=== PATIENT | female | born 1970 | race Caucasian/White ===

== ENCOUNTER → 2019-09-20 13:59 | Outpatient (BNVA) | payer BC, SELFPAY | PROVIDERS: Family Provider Family Medicine; PCP Family Medicine; Visit Provider Internal Medicine Rheumatology | DX: M05.9 Rheumatoid arthritis with rheumatoid factor, unspecified (principal); Z79.899 Other long term (current) drug therapy; Z11.59 Encounter for screening for other viral diseases; Z11.1 Encounter for screening for respiratory tuberculosis; Z72.89 Other problems related to lifestyle; M19.90 Unspecified osteoarthritis, unspecified site | CPT/HCPCS: 36415; 80076; 82565; 85025; 86140; 86480; 86704; 86803; 87340 ==

== ENCOUNTER 2019-09-21 08:50 | Outpatient (CLI) | payer SELFPAY ==
--- NOTE | 2019-09-21 09:08 | XR_ITS ---
WS: [id number] LEFT HAND: 3 VIEW(S) TECHNIQUE: PA, oblique and lateral. HISTORY: inflammatory arthritis COMPARISON: None available. No acute fracture or dislocation. No soft tissue or bone abnormality. XR/XR hand LT min 3V* [id number] IMPRESSION: Normal LEFT hand.
--- NOTE | 2019-09-21 09:08 | XR_ITS ---
WS: [id number] RIGHT FOOT: 3 VIEW(S) TECHNIQUE: PA, oblique and lateral. HISTORY: inflammatory arthritis COMPARISON: None available. No acute fracture or dislocation. Mild hallux valgus. Small erosion in the first metatarsal head and fifth metatarsal head. There is also mild osteopenia. Small calcaneal spur. XR/XR foot RT min 3V* [id number] IMPRESSION: 1. Mild osteopenia. 2. Small erosions involving the first and fifth metatarsal heads.
--- NOTE | 2019-09-21 09:08 | XR_ITS ---
WS: [id number] LEFT FOOT: 3 VIEW(S) TECHNIQUE: PA, oblique and lateral. HISTORY: inflammatory arthritis COMPARISON: None available. No acute fracture or dislocation. Normal tarsal/metatarsal alignment. No soft tissue abnormality or bone destruction. Mild osteopenia. Small erosion involving the fifth metatarsal head. XR/XR foot LT min 3V* [id number] IMPRESSION: 1. Fifth metatarsal head erosion and osteopenia. Findings can be seen with rhe umatoid arthritis. 2. No fracture or subluxation.
--- NOTE | 2019-09-21 09:08 | XR_ITS ---
WS: [id number] CHEST 2 VIEWS HISTORY: inflammatory arthritis COMPARISON: 07/03/2017 Lungs: Lungs are well-aerated. On the lateral projection only is a slight spiculation posterior to th e sternum which needs further evaluation. May be an area of scar. No prior studies to confirm long-te rm stability. Cardiac size: Normal. Mediastinum/Aorta: Normal mediastinum. Bones: Normal. XR/XR chest 2V* [id number] IMPRESSION: 1. Seen on the lateral projection within the retrosternal region is a spiculat ed nodule measuring 12 mm. Recommend follow-up chest CT with IV contrast. Neopl asm needs to be excluded. May be a benign scar or atelectasis. 2. No bullous disease.
== END 2019-09-21 08:51 | disposition home or self-care (01) ==
LOC: RADWPI 08:54
PROVIDERS: Family Provider Family Medicine; PCP Family Medicine; Visit Provider Internal Medicine Rheumatology
DX: M13.88 Other specified arthritis, other site (principal); M85.872 Other specified disorders of bone density and structure, left ankle and foot; M85.871 Other specified disorders of bone density and structure, right ankle and foot
CPT/HCPCS: 71046; 73130; 73630

== ENCOUNTER → 2019-10-23 12:42 | Outpatient (BNVA) | payer SELFPAY | PROVIDERS: Family Provider Family Medicine; PCP Family Medicine; Visit Provider Internal Medicine Rheumatology | DX: Z79.899 Other long term (current) drug therapy (principal); M05.9 Rheumatoid arthritis with rheumatoid factor, unspecified; M19.90 Unspecified osteoarthritis, unspecified site | CPT/HCPCS: 80076; 82565; 85025; 85651; 86140 ==

== ENCOUNTER 2019-11-13 08:50 | Outpatient (CLI) | payer SELFPAY ==
[2019-11-13] MEDS: iohexol 300 mg/mL 100 mL Btl IV (09:11)
--- NOTE | 2019-11-13 10:00 | CT_ITS ---
WS: [id number] CT CHEST TECHNIQUE: Contrast enhanced CT of the chest with coronal and sagittal reformatted images. CLINICAL INFORMATION: lung nodule COMPARISON: Radiograph September 21, 2019 DLP: 399.[address] scans at [facility] use at least one of these dose optimization techniques: automat ed exposure control; mA and/or kV adjustment per patient size (includes targeted exams where dose is matched to clinical indication); or iterative reconstruction. FINDINGS: Mild chronic emphysematous changes. No acute-appearing pulmonary infiltrates. Previously described sp iculated nodule in the radiograph retrosternal region corresponds to a small fibrotic nodular density measuring 9 mm along the anterior right upper lobe and adjacent to the mediastinum. Small amount of adjacent tree in bud infiltrate. Additional micronodular tree-in-bud infiltrates involving the right upper lobe. Hazy groundglass noncalcified nodules in the right upper lobe the largest measuring 4.4 and 2.8 mm. A dditional fibrosis and tree-in-bud nodularity in the right lung apex. No mediastinal or hilar lymphadenopathy. Normal thyroid gland. No axillary lymphadenopathy. Splenic g ranulomas. Adrenal glands are normal. Partially visualized cortical atrophy left kidney with a few pa rtially visualized and presumed renal cysts. Fatty infiltration liver. Dense cholelithiasis. CT/CT chest w con* [id number] IMPRESSION: 1. Fibrotic appearing nodular density in the right upper lobe anteriorly adjac ent to the mediastinum measuring 9 mm corresponds to the radiographic findings. Recommend 6 month follow-up. 2. Additional hazy groundglass nodules in the right upper lobe measuring 4.4 a nd 2.8 mm. Recommend 6 month follow-up. 3. A few micronodular tree-in-bud infiltrates in the right upper lobe describe d above can be seen with infectious or inflammatory bronchiolitis. 4. Dense Cholelithiasis. This can be further evaluated with ultrasound. 5. Partially visualized low-attenuation lesions left kidney likely renal cysts but incompletely evaluated. This can be further evaluated ultrasound. 6. Diffuse fatty infiltration liver.
== END 2019-11-13 08:51 | disposition home or self-care (01) ==
LOC: RAD 08:54
PROVIDERS: Family Provider Family Medicine; PCP Family Medicine; Visit Provider Internal Medicine Rheumatology
DX: R91.1 Solitary pulmonary nodule (principal); R91.8 Other nonspecific abnormal finding of lung field; K80.80 Other cholelithiasis without obstruction; N28.9 Disorder of kidney and ureter, unspecified; K76.0 Fatty (change of) liver, not elsewhere classified
CPT/HCPCS: 71260

== ENCOUNTER → 2019-12-13 14:53 | Outpatient (BNVA) | payer SELFPAY | PROVIDERS: Family Provider Family Medicine; PCP Family Medicine; Visit Provider Internal Medicine Rheumatology | DX: Z79.899 Other long term (current) drug therapy (principal) | CPT/HCPCS: 36415; 80076; 82565; 85025; 85651; 86140 ==

== ENCOUNTER → 2019-12-28 09:36 | Outpatient (BNVA) | payer SELFPAY | PROVIDERS: Family Provider Family Medicine; PCP Family Medicine; Visit Provider Internal Medicine Rheumatology | DX: M05.79 Rheumatoid arthritis with rheumatoid factor of multiple sites without organ or systems involvement (principal); Z79.899 Other long term (current) drug therapy; K13.0 Diseases of lips; F17.210 Nicotine dependence, cigarettes, uncomplicated; Z79.52 Long term (current) use of systemic steroids | CPT/HCPCS: 99214 ==

== ENCOUNTER → 2020-05-15 15:19 | Outpatient (BNVA) | payer SELFPAY | PROVIDERS: Family Provider Family Medicine; PCP Family Medicine; Visit Provider Internal Medicine Rheumatology | DX: Z79.899 Other long term (current) drug therapy (principal); M05.79 Rheumatoid arthritis with rheumatoid factor of multiple sites without organ or systems involvement | CPT/HCPCS: 36415; 80076; 82565; 85025; 85651; 86140 ==

== ENCOUNTER → 2020-06-21 08:42 | Outpatient (BNVA) | payer SELFPAY | PROVIDERS: Family Provider Family Medicine; PCP Family Medicine; Visit Provider Internal Medicine Rheumatology | DX: M05.79 Rheumatoid arthritis with rheumatoid factor of multiple sites without organ or systems involvement (principal); Z79.899 Other long term (current) drug therapy; Z11.59 Encounter for screening for other viral diseases | CPT/HCPCS: 80076; 81003; 82565; 82570; 84156; 85025; 85651; 86140 ==

== ENCOUNTER → 2020-09-19 10:29 | Outpatient (BNVA) | payer SELFPAY | PROVIDERS: Family Provider Family Medicine; PCP Family Medicine; Visit Provider Internal Medicine Rheumatology | DX: M05.79 Rheumatoid arthritis with rheumatoid factor of multiple sites without organ or systems involvement (principal); M19.90 Unspecified osteoarthritis, unspecified site; Z79.899 Other long term (current) drug therapy | CPT/HCPCS: 36415; 80076; 82565; 85025; 86140 ==

== ENCOUNTER → 2020-09-26 14:56 | Outpatient (BNVA) | payer SELFPAY | PROVIDERS: Family Provider Family Medicine; PCP Family Medicine; Visit Provider Internal Medicine Rheumatology | DX: M05.79 Rheumatoid arthritis with rheumatoid factor of multiple sites without organ or systems involvement (principal); Z79.899 Other long term (current) drug therapy; K13.0 Diseases of lips; F17.210 Nicotine dependence, cigarettes, uncomplicated | CPT/HCPCS: 99214 ==

== ENCOUNTER → 2020-12-03 08:51 | Outpatient (BNVA) | payer SELFPAY | PROVIDERS: Family Provider Family Medicine; PCP Family Medicine; Visit Provider Internal Medicine Rheumatology | DX: M05.79 Rheumatoid arthritis with rheumatoid factor of multiple sites without organ or systems involvement (principal); Z79.899 Other long term (current) drug therapy | CPT/HCPCS: 80076; 82565; 85025; 86140 ==

== ENCOUNTER → 2020-12-26 10:17 | Outpatient (BNVA) | payer SELFPAY | PROVIDERS: Family Provider Family Medicine; PCP Family Medicine; Visit Provider Internal Medicine Rheumatology | DX: M05.9 Rheumatoid arthritis with rheumatoid factor, unspecified (principal); M62.838 Other muscle spasm; Z79.899 Other long term (current) drug therapy | CPT/HCPCS: 36415; 82310; 83735; 84132 ==

== ENCOUNTER → 2021-03-11 08:53 | Outpatient (BNVA) | payer SELFPAY | PROVIDERS: Family Provider Family Medicine; PCP Family Medicine; Visit Provider Internal Medicine Rheumatology | DX: M05.79 Rheumatoid arthritis with rheumatoid factor of multiple sites without organ or systems involvement (principal); M19.90 Unspecified osteoarthritis, unspecified site; M05.9 Rheumatoid arthritis with rheumatoid factor, unspecified; Z79.899 Other long term (current) drug therapy | CPT/HCPCS: 80076; 82565; 85025; 86140 ==

== ENCOUNTER → 2021-03-13 10:49 | Outpatient (BNVA) | payer SELFPAY | PROVIDERS: Family Provider Family Medicine; PCP Family Medicine; Visit Provider Internal Medicine Rheumatology | DX: M05.79 Rheumatoid arthritis with rheumatoid factor of multiple sites without organ or systems involvement (principal); Z79.899 Other long term (current) drug therapy; R53.83 Other fatigue; K13.0 Diseases of lips; J21.9 Acute bronchiolitis, unspecified; Z71.89 Other specified counseling; F17.210 Nicotine dependence, cigarettes, uncomplicated | CPT/HCPCS: 99214 ==

== ENCOUNTER 2021-05-22 18:41 | Emergency (ER) | payer MEDICAID, SELFPAY ==
[2021-05-22 18:59] VITALS: BP 150/98; PULSE 99; RESP 16; TEMP 37.1; O2SAT 99
[2021-05-22] MEDS: dexamethasone 10 mg/mL INJ IM (19:44)
[2021-05-22] MEDS: HYDROcodone-acetaminophen 5-325 mg Tablet 1 TAB PO (19:44)
--- NOTE | 2021-05-22 21:50 | ED_ITS ---
HPI - Back Pain/Injury General: Chief Complaint: Back Pain/Injury Stated Complaint: Left hip pain to her toes Time Seen by Provider: 05/22/21 19:06 History of Present Illness: HPI Narrative: Patient states she has a flareup of her sciatica patient states it hurts from her left hip down to her toe along her sciatic nerve. Patient being treated for RA. She said her 5 mg prednisone has not been helping. Denies any acute injury. MD elicited complaint: other (Sciatica) Pertinent past history: prior back pain Onset (ago): day(s) Timing: constant Severity: moderate Similar Symptoms Previously: Yes Quality: burning Radiation: left upper leg and left leg below the knee Exacerbating factors: movement, sitting upright and walking Relieving factors: immobilization Context: turning/twisting Associated symptoms: Reports no associated symptoms; Deny abdominal pain, chills, fever(s), nausea or vomiting Treatments prior to arrival: NSAIDS Review of Systems Const: Denies: fever(s), chills or body aches Eyes: Denies: change in vision or blurry vision ENMT: Denies: throat pain or nasal congestion Card: Denies: chest pain or dyspnea on exertion Resp: Denies: dyspnea, productive cough or non-productive cough GI: Denies: abdominal pain, nausea or vomiting Musc: Reports: back pain and extremity pain Skin/Breast: Denies: rash Neuro: Denies: headache(s) Psych: Denies: anxiety or depression Jeovanny/Lymph: Denies: easy bruising PFSH ED PFSH: Medical History Abnormal laboratory test Acute bronchiolitis Angular cheilitis from MTX, improved Encounter for screening for other viral diseases High risk medication use Hypertension does not have ! Immunization counseling Joint pain Pulmonary nodules Seropositive rheumatoid arthritis Seropositive rheumatoid arthritis of multiple sites Surgical History History of section x3 History of ear surgery eustachian dilation History of hysterectomy Family History Other Cancer Diabetes Hypertension Rheumatoid arthritis Denies family history of Chronic kidney disease (CKD) Systemic lupus erythematosus (SLE) in adult Family history of premature coronary artery disease Stroke Social History Smoking and tobacco status: current every day smoker cigarettes Packs smoked per day: 0.75 Alcohol intake: never History of recent travel: No Physical Exam Const: COMMON NORMALS: no acute distress, average body habitus and patient oriented x3 HENMT: COMMON NORMALS: normocephalic HEAD & SCALP: normal to inspection and normocephalic FACE & SINUS: normal facial exam Eye: COMMON NORMALS: conjunctivae normal GENERAL EYE: appearance normal, both eyes and all related structures CONJUNCTIVA: Yes conjunctivae normal Neck/C-Spine: COMMON NORMALS: no JVD Chest: COMMONS NORMALS: normal inspection of the chest Resp: COMMON NORMALS: normal respiratory effort and clear to auscultation bilaterally AUSCULTATION: clear to auscultation bilaterally Cardio: COMMON NORMALS: no JVD, regular rate and regular rhythm RATE: regular rate RHYTHM: regular rhythm GI: COMMON NORMALS: Normal to inspection, nondistended, normoactive bowel sounds present Back/Pelvis: LUMBAR SPINE/LOWER BACK: Yes straight leg raise positive left OTHER: Tenderness along sciatic root from the buttock down across the mid thigh down to the calf. Patient has good range of motion. Neurovascular intact. Extremity: COMMON NORMALS: normal to inspection and full ROM Neuro: COMMON NORMALS: patient oriented x3 Course Vital Signs: Vital signs: Vital Signs Temperature 98.8 F 05/22/21 18:59 Pulse Rate 99 05/22/21 18:59 Respiratory Rate 16 05/22/21 18:59 Blood Pressure 150/98 05/22/21 18:59 Pulse Oximetry 99 05/22/21 18:59 Discharge Plan Discharge Patient Disposition: Home Clinical Impression: Lumbar radiculopathy Condition: Stable Prescriptions: New hydrocodone-acetaminophen 5-325 mg tablet 1 tab PO TID PRN (Reason: pain) Qty: 14 RF: 0 prednisone 20 mg tablet 20 mg PO DAILY Qty: 7 RF: 0 No Action albuterol sulfate [ProAir HFA] 90 mcg/actuation HFA aerosol inhaler 2 puff INHALATION Q6H PRN (Reason: shortness of breath or wheezing) Qty: 8.5 RF: 0 tramadol 50 mg tablet 50 mg PO .HS PRNRF: 0 fluticasone propionate [Flonase Allergy Relief] 50 mcg/actuation spray,suspension 1 spray INTRANASAL BID 30 Days Qty: 16 RF: 3 Humira Pen 40 mg/0.8 mL pen injector kit 40 mg SUBCUT Q14D Qty: 2 RF: 3 Hold Instructions: URI leflunomide 20 mg tablet 20 mg PO DAILY Qty: 90 RF: 1 Hold Instructions: Doctor's Order pantoprazole 40 mg tablet,delayed release (DR/EC) 40 mg PO DAILY Qty: 90 RF: 1 prednisone 5 mg tablet 5 mg PO DAILY Qty: 90 RF: 1 Discharge Orders: Discharge ED (Routine); Ordered 05/22/21 Ordered By: Yariel Otoole Referrals: Lizeth Sinclair MD [Primary Care Provider] - Discharge Diet: Usual diet Discharge Activity: Increase activity as tolerated Patient Instructions: Sciatica (ED) Activity Restrictions/Additional Instructions: Follow-up with medical provider as directed. Take medications as prescribed. Return to the ER or your medical provider if condition worsens. Please read and understand discharge instructions. If any questions ask please. Coding Level of Care Code ED Geography Department Chair for Katlyn Ng
== END 2021-05-22 19:54 | disposition home or self-care (01) ==
PROVIDERS: Emergency Provider Nurse Practitioner Family; PCP Family Medicine
DX: M54.16 Radiculopathy, lumbar region (principal); I10 Essential (primary) hypertension; F17.210 Nicotine dependence, cigarettes, uncomplicated
CPT/HCPCS: 96372; 99283; J1100

== ENCOUNTER 2021-06-06 12:06 | Emergency (ER) | payer MEDICAID, SELFPAY ==
--- NOTE | 2021-06-06 12:11 | XRR_ITS ---
PROCEDURE INFORMATION: Exam: XR Left Hip Exam date and time: 06/06/2021 12:11 PM Age: 51 years old Clinical indication: Patient HX: Left hip pain x2 weeks. No known injury TECHNIQUE: Imaging protocol: XR Left hip. Views: 2 or 3 views hip with pelvis when performed. COMPARISON: No relevant prior studies available. FINDINGS: Bones/joints: Unremarkable. No acute fracture. Soft tissues: Unremarkable. XR/XR hip LT 2-3V wo/w pel* [id number] IMPRESSION: No acute findings.
[2021-06-06 12:38] VITALS: BP 133/82; PULSE 102; RESP 16; TEMP 36.8; O2SAT 97; BMI 32.5
--- NOTE | 2021-06-06 12:59 | W.ED.EXTPRO ---
HPI - Extremity Problem General: Chief complaint: Extremity Injury, Lower Stated complaint: L SIDE HIP PAIN Time Seen by Provider: 06/06/21 12:44 Source: patient Mode of arrival: ambulatory Limitations: no limitations History of Present Illness: HPI Narrative: 51-year-old female presents to the ER today for continued left sided sciatic pain. Patient has been seen in the ER for this in the past week and has also seen her PCP. Patient reports a history of rheumatoid arthritis and has had issues like this before. Patient is on 15 mg daily of prednisone for her RA. Patient reports she has tried hydrocodone and cyclobenzaprine with no improvement. Patient was given a Toradol shot last week and that seemed to help the most. Patient reports she is having difficulty sleeping due to the pain and feels like she is constantly crying due to her pain. She has tried a chiropractor with no improvement. She has not had imaging of her low back and denies any known injury to the low back. Patient reports pain starts in the left hip and radiates to the left foot. She denies any loss of bowel or bladder control. Denies any loss of motor function of the left leg. Onset (ago): week(s) Pain Consistency: constant Location: left and lower extremity Severity scale (1-10): 9 Quality: stabbing and sharp Radiation: distal Relieving factors: nothing Exacerbating factors: range of motion, weight bearing and walking Review of Systems General: Reports: 10 or more systems reviewed and unremarkable except in HPI and below PFSH ED PFSH: Medical History Abnormal laboratory test Acute bronchiolitis Angular cheilitis from MTX, improved Encounter for screening for other viral diseases High risk medication use Hypertension does not have ! Immunization counseling Joint pain Pulmonary nodules Seropositive rheumatoid arthritis Seropositive rheumatoid arthritis of multiple sites Surgical History History of section x3 History of ear surgery eustachian dilation History of hysterectomy Family History Other Cancer Diabetes Hypertension Rheumatoid arthritis Denies family history of Chronic kidney disease (CKD) Systemic lupus erythematosus (SLE) in adult Family history of premature coronary artery disease Stroke Social History Smoking and tobacco status: current every day smoker cigarettes Packs smoked per day: 0.75 Alcohol intake: never History of recent travel: No Physical Exam Const: COMMON NORMALS: average body habitus and patient oriented x3 GENERAL APPEARANCE: cooperative and comfortable (pt tearful due to pain) Neck/C-Spine: COMMON NORMALS: full ROM, no lymphadenopathy and supple Resp: COMMON NORMALS: normal respiratory effort, No retractions and clear to auscultation bilaterally EFFORT & INSPECTION: Yes able to speak in complete sentences AUSCULTATION: clear to auscultation bilaterally, no rales, no rhonchi and no wheezes Cardio: COMMON NORMALS: regular rate, regular rhythm and No murmurs present (Cardio) RATE: regular rate RHYTHM: regular rhythm GI: COMMON NORMALS: Normal to inspection, nondistended, normoactive bowel sounds present, Soft to palpation and non-tender PALPATION: Yes Soft to palpation : COMMON NORMALS: Yes no CVA tenderness BLADDER/KIDNEY EXAM: Yes no CVA tenderness Back/Pelvis: COMMON NORMALS: no CVA tenderness THORACIC SPINE/UPPER BACK: Yes thoracic ROM normal LUMBAR SPINE/LOWER BACK: Yes lumbar ROM normal SACROILIAC JOINTS: Yes SI joint(s) abnormal SI joint details: tender to palpation (L SI joint) Extremity: COMMON NORMALS: normal to inspection and full ROM Neuro: COMMON NORMALS: patient oriented x3, moves all extremities and no sensory deficits noted Psych: COMMON NORMALS: mental status grossly normal, Normal thought process present and cooperative THOUGHT PROCESS: Normal thought process present Skin: COMMON NORMALS: no rashes or lesions noted GENERAL SKIN EXAM: no rashes or lesions noted Course ED course: Patient presents to the ER today for continued left hip and sciatic pain. Patient has seen her PCP and chiropractor for this in addition to being seen in the ER. Patient reports the only improvement she is noted was when given Toradol. We will get imaging in the ER today and change up medications. Vital Signs: Vital signs: Vital Signs Temperature 98.3 F 06/06/21 12:38 Pulse Rate 102 H 06/06/21 12:38 Respiratory Rate 16 06/06/21 12:38 Blood Pressure 133/82 06/06/21 12:38 Pulse Oximetry 97 06/06/21 12:38 Critical Care Time Critical Care Time: Critical Care Time: No MDM - Extremity (Nontraumatic) MDM Narrative: Medical decision making narrative: 51-year-old female presents the ER today for left-sided sciatic pain. Patient reports is been going on for several weeks now. She saw her PCP for this and also was in the ER for this recently. Patient also has seen a chiropractor. She reports she has been put on hydrocodone which did take the edge off but did not totally take the pain away. She is also tried the chiropractor and stretching. Patient reports the only relief she got was with Toradol. She is on 15 mg daily of prednisone for her RA. Patient denies any loss of bowel or bladder control and physical exam is unremarkable for any neurological abnormality. Patient does not have any loss of left leg motor function. We will change patient from cyclobenzaprine to Robaxin to see if this helps. We will also do a Toradol shot in the ER today in addition to sending home patient with ketorolac for 3 days. Patient should contact her PCP on Wednesday to discuss further imaging such as an MRI. Return to the ER with any new or worsening symptoms. Patient verbalized understanding and is in agreement with this treatment plan Imaging Data^: Xray Ortho: Radiologist's impression: [address] [place] [address] XRay Report Signed Patient: Lucy Fu Unit #: [id number] : 1970 Age/Sex: 51 / F ADM Date: 06/06/21 Loc: ER Room/Bed: Attending Dr: Ordering Provider/Ordering MD: Juan Adair MD Date of Service: 06/06/21 Procedure(s): XR hip LT 2-3V wo/w pel* [id number] Accession Number(s): [id number] Report Number: [id number] PROCEDURE INFORMATION: Exam: XR Left Hip Exam date and time: 06/06/2021 12:11 PM Age: 51 years old Clinical indication: Patient HX: Left hip pain x2 weeks. No known injury TECHNIQUE: Imaging protocol: XR Left hip. Views: 2 or 3 views hip with pelvis when performed. COMPARISON: No relevant prior studies available. FINDINGS: Bones/joints: Unremarkable. No acute fracture. Soft tissues: Unremarkable. XR/XR hip LT 2-3V wo/w pel* [id number] IMPRESSION: No acute findings. Dictated By: Corey Brown Signed By: Corey Brown Signed Date/Time: 06/06/21 1301 DD/ 1211 Discharge Plan Discharge Patient Disposition: Home Clinical Impression: Left sided sciatica Condition: Stable Prescriptions: New ketorolac 10 mg tablet 10 mg PO Q8H PRN (Reason: pain) 3 Days RF: 0 methocarbamol 750 mg tablet 750 mg PO Q8H Qty: 21 RF: 0 No Action albuterol sulfate [ProAir HFA] 90 mcg/actuation HFA aerosol inhaler 2 puff INHALATION Q6H PRN (Reason: shortness of breath or wheezing) Qty: 8.5 RF: 0 tramadol 50 mg tablet 50 mg PO .HS PRNRF: 0 fluticasone propionate [Flonase Allergy Relief] 50 mcg/actuation spray,suspension 1 spray INTRANASAL BID 30 Days Qty: 16 RF: 3 Humira Pen 40 mg/0.8 mL pen injector kit 40 mg SUBCUT Q14D Qty: 2 RF: 3 Hold Instructions: URI leflunomide 20 mg tablet 20 mg PO DAILY Qty: 90 RF: 1 Hold Instructions: Doctor's Order pantoprazole 40 mg tablet,delayed release (DR/EC) 40 mg PO DAILY Qty: 90 RF: 1 prednisone 5 mg tablet 5 mg PO DAILY Qty: 90 RF: 1 hydrocodone-acetaminophen 5-325 mg tablet 1 tab PO TID PRN (Reason: pain) Qty: 14 RF: 0 prednisone 20 mg tablet 20 mg PO DAILY Qty: 7 RF: 0 Discharge Orders: Discharge ED (Routine); Ordered 06/06/21 Ordered By: Veena Callejas Referrals: Marah Olson APN [Primary Care Provider] - Discharge Diet: Usual diet Discharge Activity: Increase activity as tolerated Patient Instructions: Sciatica (ED), Lower Back Exercises (ED), Opioid Safety Activity Restrictions/Additional Instructions: Take ketorolac as prescribed. Stop cyclobenzaprine and start methocarbamol. Low back exercises and sciatic exercises as given in ER. Warm moist heat recommended for symptomatic relief. Topical muscle rub recommended but do not use with heat or ice. Follow-up with PCP in 3 to 5 days. Return to the ER with any new or worsening symptoms. Coding Level of Care Code ED Supplier Engineer for Katlyn Ng
[2021-06-06] MEDS: ketorolac 30 mg/mL INJ IM (13:40)
[2021-06-06 14:11] VITALS: BP 122/87; PULSE 92; RESP 16; O2SAT 97
== END 2021-06-06 14:13 | disposition home or self-care (01) ==
PROVIDERS: Emergency Provider Physician Assistant; PCP Nurse Practitioner Family
DX: M54.32 Sciatica, left side (principal); I10 Essential (primary) hypertension; F17.210 Nicotine dependence, cigarettes, uncomplicated
CPT/HCPCS: 73502; 96372; 99283; J1885

== ENCOUNTER → 2021-08-11 15:03 | Outpatient (BNVA) | payer MEDICAID, SELFPAY | PROVIDERS: PCP Nurse Practitioner Family; Visit Provider Internal Medicine Rheumatology | DX: M05.9 Rheumatoid arthritis with rheumatoid factor, unspecified (principal); Z79.899 Other long term (current) drug therapy | CPT/HCPCS: 80076; 82565; 85025; 86140 ==

== ENCOUNTER → 2021-08-21 14:17 | Outpatient (BNVA) | payer MEDICAID, SELFPAY | PROVIDERS: PCP Nurse Practitioner Family; Visit Provider Internal Medicine Rheumatology | DX: M05.79 Rheumatoid arthritis with rheumatoid factor of multiple sites without organ or systems involvement (principal); Z79.899 Other long term (current) drug therapy; Z71.89 Other specified counseling | CPT/HCPCS: 99214 ==

== ENCOUNTER → 2022-03-19 14:19 | Outpatient (BNVA) | payer MEDICAID, SELFPAY | PROVIDERS: PCP Nurse Practitioner Family; Visit Provider Registered Nurse Neonatal Intensive Care | DX: M79.641 Pain in right hand (principal) | CPT/HCPCS: 73130 ==

== ENCOUNTER 2022-09-21 22:39 | Emergency (ER) | payer MEDICAID, SELFPAY ==
--- NOTE | 2022-09-21 22:57 | XRR_ITS ---
PROCEDURE INFORMATION: Exam: XR Chest Exam date and time: 09/21/2022 11:06 PM Age: 52 years old Clinical indication: Other: Covid pos; Additional info: Cough TECHNIQUE: Imaging protocol: Radiologic exam of the chest. Views: 1 view. COMPARISON: CT chest w con* [id number] 11/13/2019 9:00 AM FINDINGS: Lungs: Calcified left hilar lymph nodes. Calcified granuloma in the left central lung. The lungs otherwise are clear. No consolidation. Pleural spaces: Unremarkable. No pleural effusion. No pneumothorax. Heart/Mediastinum: Unremarkable. No cardiomegaly. Bones/joints: Unremarkable. XR/XR chest 1V portable [id number] IMPRESSION: No acute findings.
[2022-09-21 23:36] VITALS: BP 118/80; PULSE 73; RESP 17; TEMP 37.4; O2SAT 97; BMI 23.0
[2022-09-21 23:39] VITALS: O2SAT 97
--- NOTE | 2022-09-21 23:53 | ED_ITS ---
HPI - COVID General: Chief Complaint: COVID symptoms Stated Complaint: +Covid Time Seen by Provider: 09/21/22 23:15 History of Present Illness: 52-year-old female comes in today for complaints of COVID. Patient reports upper respiratory symptoms since Wednesday. Patient has a history of rheumatoid arthritis in which she is in treatment for and also COPD. Patient denies any severe symptoms. Patient appears nontoxic. Patient appears in no pain. Patient had a positive home COVID test today. COVID 19 common symptoms: positive fever(s) and productive cough COVID 19 other sytmptoms: negative chest pain COVID Results: No Data to Display Review of Systems General: Reports: 10 or more systems reviewed and unremarkable except in HPI and below Const: Reports: fever(s) Eyes: Reports: change in vision ENMT: Reports: nasal discharge and sinus pain Card: Denies: chest pain Resp: Reports: productive cough GI: Denies: abdominal pain Musc: Denies: back pain or extremity pain PFSH ED PFSH: Medical History Abnormal laboratory test Acute bronchiolitis Angular cheilitis from MTX, improved Encounter for screening for other viral diseases High risk medication use Hypertension does not have ! Immunization counseling Joint pain Pulmonary nodules Seropositive rheumatoid arthritis Seropositive rheumatoid arthritis of multiple sites Surgical History History of section x3 History of ear surgery eustachian dilation History of hysterectomy Family History Other Cancer Diabetes Hypertension Rheumatoid arthritis Denies family history of Chronic kidney disease (CKD) Systemic lupus erythematosus (SLE) in adult Family history of premature coronary artery disease Stroke Social History Smoking and tobacco status: current every day smoker cigarettes Packs smoked per day: 0.75 Alcohol intake: never Physical Exam Const: COMMON NORMALS: alert HENMT: NOSE: Nasal discharge present THROAT: posterior oropharynx normal Neck/C-Spine: COMMON NORMALS: full ROM Resp: COMMON NORMALS: normal respiratory effort and clear to auscultation b ilaterally AUSCULTATION: clear to auscultation bilaterally Cardio: COMMON NORMALS: regular rate and regular rhythm RATE: regular rate RHYTHM: regular rhythm GI: COMMON NORMALS: Soft to palpation and non-tender PALPATION: Yes Soft to palpation Back/Pelvis: COMMON NORMALS: thoracic and lumbar spine normal to inspection Extremity: COMMON NORMALS: full ROM Neuro: SENSORIUM/ORIENTATION: Yes alert Skin: COMMON NORMALS: turgor normal GENERAL SKIN EXAM: turgor normal Course Vital Signs: Vital signs: Vital Signs Temperature 99.3 F 09/21/22 23:36 Pulse Rate 73 09/21/22 23:36 Respiratory Rate 17 09/21/22 23:36 Blood Pressure 118/80 09/21/22 23:36 Pulse Oximetry 97 09/21/22 23:39 Oxygen Delivery Me thod Room Air 09/21/22 23:39 MDM - COVID Medical Decision Making 52-year-old female comes in today with upper respiratory symptoms since Wednesday. Patient had a positive home COVID test today. On exam patient has some inspiratory scattered wheezes in lung nava. Abdomen soft nontender. Nasal discharge is noted. Bilateral TMs are clear. Vital signs are normal. Differ ential diagnosis includes pneumonia, COVID-19, upper respiratory infection. Chest x-ray was unremarkable. Reviewed exam with patient with recommendations for treatment for COVID-19 with Paxlovid. Patient agreed to plan along with understanding of need for follow-up or return to the ER for worsening symptoms. Lab Data Radiology Impressions Chest X-Ray 09/21/22 22:57 IMPRESSION: No acute findings. No Data to Display Discharge Plan Discharge Patient Disposition: Home Clinical Impression: COVID-19, Seropositive rheumatoid arthritis Condition: Stable Prescriptions: New Paxlovid (EUA) 150-100 mg tablets,dose pack See Rx Instructions .ROUTE .COMPLEX Qty: 20 0RF Rx Instructions: take ONE 150 mg tablet of nirmatrelvir with ONE 100 mg tablet of ritonavir twice daily for 5 days No Action albuterol sulfate [ProAir HFA] 90 mcg/actuation HFA aerosol inhaler 2 puff INHALATION Q6H PRN (Reason: shortness of breath or wheezing) Qty: 8.5 0RF pregabalin [Lyrica] 75 mg capsule 75 mg PO BID Qty: 60 3RF tramadol 50 mg tablet 50 mg PO .HS PRN Patient Comments: DR Sinclair PCP prescribes this med fluticasone propionate [Flonase Allergy Relief] 50 mcg/actuation spray,suspension 1 spray INTRANASAL BID 30 Days Qty: 16 3RF Rx Instructions: administer into each nostril leflunomide 20 mg tablet 20 mg PO DAILY Qty: 90 1RF Hold Instructions: Doctor's Order pantoprazole 40 mg tablet,delayed release (DR/EC) 40 mg PO DAILY Qty: 90 1RF tizanidine [Zanaflex] 6 mg capsule 6 mg PO ONCE Actemra 162 mg/0.9 mL syringe SUBCUT amoxicillin-pot clavulanate 875-125 mg tablet 1 tab PO BID 7 Days Qty: 14 0RF hydrocodone-acetaminophen 5-325 mg tablet 1 tab PO TID PRN (Reason: pain) Qty: 14 0RF Discharge Orders: Discharge ED (Routine); Ordered 09/22/22 Ordered By: Edy Castro Referrals: Lizeth Sinclair MD [Primary Care Provider] - Discharge Diet: Usual diet Discharge Activity: Increase activity as tolerated Patient Instructions: COVID-19 (Coronavirus Disease 2019) (ED) Activity Restrictions/Additional Instructions: Home and rest. You may use alzm-lye-klwxhew cold medications to help with cough and nasal congestion. Drink plenty of water with medications. Use acetaminophen and/or ibuprofen as needed for fever or pain. Take Paxlovid as directed for the next 5 days. Follow-up with primary care for further instruction. Return to emergency department for worsening symptoms such as inability to hold fluids down, increasing shortness of breath, severe chest pain, or new concerns. Coding Level of Care Code ED Prior Authorization Nurse for Katlyn Ng
== END 2022-09-22 00:11 | disposition home or self-care (01) ==
PROVIDERS: Emergency Provider Nurse Practitioner Family; PCP Family Medicine
DX: U07.1 COVID-19 (principal); M05.9 Rheumatoid arthritis with rheumatoid factor, unspecified; F17.210 Nicotine dependence, cigarettes, uncomplicated; I10 Essential (primary) hypertension
CPT/HCPCS: 71045; 99283

== ENCOUNTER 2022-11-05 20:53 | Emergency (ER) | payer MEDICAID, SELFPAY ==
[2022-11-05 21:07] VITALS: BMI 21.2
[2022-11-05 21:10] VITALS: BP 138/90; PULSE 92; RESP 18; TEMP 36.8; O2SAT 96
--- NOTE | 2022-11-05 21:54 | W.ED.GENADLT ---
HPI - General Adult General: Chief complaint: General Medical Stated complaint: Upper Respator Hurts to Breath Time Seen by Provider: 11/05/22 21:35 PFSH ED PFSH: Medical History Abnormal laboratory test Acute bronchiolitis Angular cheilitis from MTX, improved Encounter for screening for other viral diseases High risk medication use Hypertension does not have ! Immunization counseling Joint pain Pulmonary nodules Seropositive rheumatoid arthritis Seropositive rheumatoid arthritis of multiple sites Surgical History History of section x3 History of ear surgery eustachian dilation History of hysterectomy Family History Other Cancer Diabetes Hypertension Rheumatoid arthritis Denies family history of Chronic kidney disease (CKD) Systemic lupus erythematosus (SLE) in adult Family history of premature coronary artery disease Stroke Social History Smoking and tobacco status: current every day smoker cigarettes Packs smoked per day: 0.75 Alcohol intake: never Substance/Drug Use: never Course Vital Signs: Vital signs: Vital Signs Temperature 98.2 F 11/05/22 21:10 Pulse Rate 92 11/05/22 21:10 Respiratory Rate 18 11/05/22 21:10 Blood Pressure 138/90 11/05/22 21:10 Pulse Oximetry 96 11/05/22 21:10 Oxygen Delivery Me thod Room Air 11/05/22 21:10 Discharge Plan Discharge Condition: Stable Prescriptions: No Action albuterol sulfate [ProAir HFA] 90 mcg/actuation HFA aerosol inhaler 2 puff INHALATION Q6H PRN (Reason: shortness of breath or wheezing) Qty: 8.5 0RF pregabalin [Lyrica] 75 mg capsule 75 mg PO BID Qty: 60 3RF tramadol 50 mg tablet 50 mg PO .HS PRN Patient Comments: DR Sinclair PCP prescribes this med fluticasone propionate [Flonase Allergy Relief] 50 mcg/actuation spray,suspension 1 spray INTRANASAL BID 30 Days Qty: 16 3RF Rx Instructions: administer into each nostril leflunomide 20 mg tablet 20 mg PO DAILY Qty: 90 1RF Hold Instructions: Doctor's Order tizanidine [Zanaflex] 6 mg capsule 6 mg PO ONCE Actemra 162 mg/0.9 mL syringe SUBCUT meloxicam 7.5 mg tablet 7.5 mg PO DAILY amoxicillin-pot clavulanate 875-125 mg tablet 1 tab PO BID 7 Days Qty: 14 0RF Referrals: Lizeth Sinclair MD [Primary Care Provider] - Coding Level of Care Code ED Stave Log Ripsaw Operator for Katlyn Ng
--- NOTE | 2022-11-05 21:59 | XRR_ITS ---
PROCEDURE INFORMATION: Exam: XR Chest Exam date and time: 11/05/2022 10:03 PM Age: 52 years old Clinical indication: Cough; Additional info: Cough, congestion, chills TECHNIQUE: Imaging protocol: Radiologic exam of the chest. Views: 1 view. COMPARISON: CR (CHEST, ) 09/21/2022 11:06 PM FINDINGS: Lungs: There is a 2-3 mm nodule overlying the left upper lobe. Previously seen fibrotic appearing nodule in the right upper lobe is better assessed on the prior CT from 11/13/2019. Mild peribronchial cuffing. Bibasilar opacities may represent superimposition of shadows, atelectasis, inflammation, or infection. Pleural spaces: Unremarkable. No pleural effusion. No pneumothorax. Heart/Mediastinum: The cardiomediastinal silhouette is stable in appearance. Bones/joints: Unremarkable. XR/XR chest 1V portable [id number] IMPRESSION: Mild bibasilar opacities may represent superimposition of shadows, atelectasis, inflammation, or infection.
--- NOTE | 2022-11-05 21:59 | W.ED.URI ---
HPI - URI/Sore Throat General: Chief Complaint: General Medical Stated Complaint: Upper Respator Hurts to Breath Time Seen by Provider: 11/05/22 21:35 Source: patient Mode of arrival: ambulatory Limitations: no limitations History of Present Illness: Patient is a 52-year-old female who presents to ED today with a complaint of cough and chest congestion with phlegm/sputum that she has had over the past few days. Patient is concerned she could have pneumonia. She reports history of recurrent bronchitis. Patient is not running fevers. She has no other upper respiratory symptoms. She does not complain of chest pain, shortness of breath, difficulty breathing. She states she is having green phlegm. Patient states she is on clarithromycin and amoxicillin for treatment of H. pylori. MD elicited complaint: cough Onset (ago): day(s) Severity: moderate Description of mucous: green Able to tolerate fluids by mouth: Yes Exacerbating factors: nothing Relieving factors: nothing Associated symptoms: Deny chills, chest pain, fever(s), headache(s), nasal congestion or sinus pain Treatments prior to arrival: antibiotics (for h.pylori) Review of Systems Const: Denies: fever(s), chills, body aches, fatigue or malaise ENMT: Denies: nasal discharge, nasal congestion, post nasal drip or sinus pain Card: Denies: chest pain Resp: Reports: productive cough, change in phlegm color and chest congestion; Denies: dyspnea, wheezing, stridor, pain on inspiration or hemoptysis Neuro: Denies: headache(s) or dizziness PFS ED PFSH: Medical History Abnormal laboratory test Acute bronchiolitis Angular cheilitis from MTX, improved Encounter for screening for other viral diseases High risk medication use Hypertension does not have ! Immunization counseling Joint pain Pulmonary nodules Seropositive rheumatoid arthritis Seropositive rheumatoid arthritis of multiple sites Surgical History History of section x3 History of ear surgery eustachian dilation History of hysterectomy Family History Other Cancer Diabetes Hypertension Rheumatoid arthritis Denies family history of Chronic kidney disease (CKD) Systemic lupus erythematosus (SLE) in adult Family history of premature coronary artery disease Stroke Social History Smoking and tobacco status: current every day smoker cigarettes Packs smoked per day: 0.75 Alcohol intake: never Substance/Drug Use: never Physical Exam Const: COMMON NORMALS: no acute distress, average body habitus, patient oriented x3, no limitations, healthy appearing, alert and well nourished GENERAL APPEARANCE: cooperative ORIENTATION/CONSCIOUSNESS: Yes awake, Yes oriented to person, Yes oriented to place and Yes oriented to time HENMT: COMMON NORMALS: normocephalic, atraumatic, Normal external nose present and Normal nasal mucous membranes and turbinates present HEAD & SCALP: normal to inspection, normocephalic and atraumatic FACE & SINUS: normal facial exam and sinuses nontender NOSE: Normal external nose present and Normal nasal mucous membranes and turbinates present THROAT: posterior oropharynx normal Resp: COMMON NORMALS: normal respiratory effort and clear to auscultation bilaterally AUSCULTATION: clear to auscultation bilaterally Cardio: COMMON NORMALS: regular rate and regular rhythm RATE: regular rate RHYTHM: regular rhythm Neuro: COMMON NORMALS: patient oriented x3 SENSORIUM/ORIENTATION: Yes alert, Yes oriented to person, Yes oriented to place and Yes oriented to time Course Vital Signs: Vital signs: Vital Signs Temperature 98.2 F 11/05/22 21:10 Pulse Rate 92 11/05/22 21:10 Respiratory Rate 18 11/05/22 21:10 Blood Pressure 138/90 11/05/22 21:10 Pulse Oximetry 96 11/05/22 21:10 Oxygen Delivery Me thod Room Air 11/05/22 21:10 MDM - URI/Sore Throat Medical Decision Making Patient appears in no acute distress. Her vital signs are stable. I do not appreciate any obvious consolidations on her CXR. She is already taking clarithromycin/amoxicillin for treatment of H. pylori. This should provide fairly adequate coverage for CAP. Other conservative therapies for home discussed. Otherwise she can follow-up with primary care next week. Return to ED precautions given. Lab Data Radiology Impressions Chest X-Ray 11/05/22 21:59 IMPRESSION: Mild bibasilar opacities may represent superimposition of shadows, atelectasis, inflammation, or infection. Discharge Plan Discharge Patient Disposition: Home Clinical Impression: Bronchitis Condition: Stable Prescriptions: No Action albuterol sulfate [ProAir HFA] 90 mcg/actuation HFA aerosol inhaler 2 puff INHALATION Q6H PRN (Reason: shortness of breath or wheezing) Qty: 8.5 0RF pregabalin [Lyrica] 75 mg capsule 75 mg PO BID Qty: 60 3RF tramadol 50 mg tablet 50 mg PO .HS PRN Patient Comments: DR Sinclair PCP prescribes this med fluticasone propionate [Flonase Allergy Relief] 50 mcg/actuation spray,suspension 1 spray INTRANASAL BID 30 Days Qty: 16 3RF Rx Instructions: administer into each nostril leflunomide 20 mg tablet 20 mg PO DAILY Qty: 90 1RF Hold Instructions: Doctor's Order tizanidine [Zanaflex] 6 mg capsule 6 mg PO ONCE Actemra 162 mg/0.9 mL syringe SUBCUT meloxicam 7.5 mg tablet 7.5 mg PO DAILY amoxicillin-pot clavulanate 875-125 mg tablet 1 tab PO BID 7 Days Qty: 14 0RF Discharge Orders: Discharge ED (Routine); Ordered 11/05/22 Ordered By: Thelma Rios Referrals: Lizeth Sinclair MD [Primary Care Provider] - Patient Instructions: Acute Bronchitis (ED) Coding Level of Care Code ED Welcome Center Attendant for Katlyn Ng
== END 2022-11-05 22:50 | disposition home or self-care (01) ==
PROVIDERS: Emergency Provider Physician Assistant; PCP Family Medicine
DX: J40 Bronchitis, not specified as acute or chronic (principal); F17.210 Nicotine dependence, cigarettes, uncomplicated; I10 Essential (primary) hypertension
CPT/HCPCS: 71045; 99283

== ENCOUNTER 2023-08-02 11:52 | Outpatient (CLI) | payer MEDICAID, SELFPAY ==
--- NOTE | 2023-08-02 11:58 | CT_ITS ---
WS: [id number] LDCT LUNG CANCER SCREENING HISTORY: ENCOUNTER FOR SCREENING FOR MALIGNANT NEOPLASM OF RESPIRATOR TECHNIQUE: Axial imaging performed from the apices to 1 cm below the costophrenic angles. Coronal and sagittal reformats are submitted with axial MIP series. All CT scans at [facility] use at least one of these dose optimization techniques: automated exposure control; mA and/or kV adjustment per patient size (includes targeted exams where dose is matched to clinical indication); or iterativ e reconstruction. DLP: 43.92 mGy.cm DIvol: Mean CTDIvol: 0.70 (mGy) COMPARISON: 11/13/2019 Diagnostic quality: Satisfactory Lungs: Spiculated cavitary nodule in the posterior RIGHT upper lobe measures 8 mm. This nodule is sli ghtly spiculated and abuts the pleura. There are few additional reticular nodule opacifications in th e RIGHT upper lobe. Small peripheral reticulations and nodularity extend into the RIGHT middle and RI GHT lower lobes. Heart: Normal size heart with no pericardial effusion.. Other findings: Mild atherosclerosis aorta. No adenopathy. Benign calcified lymph nodes at the LEFT h ilum. Splenic granulomata. Cholelithiasis in a contracted gallbladder. Partially visualized cyst LEFT kidney has been previously described. There is an additional nonobstructing calcification in the LEF T kidney along with cortical thinning and hyperdense nodule superiorly. IMPRESSION: CT/CT lung screening [id number] LUNG-RADS: 4A-Probably Suspicious FOLLOW UP: 3 Month LDCT OTHER FINDINGS (S MODIFIER): None.
--- NOTE | 2023-08-02 12:06 | MM_ITS ---
WS: [id number] VIEWS: MLO and CC views both breasts. 3D digital tomosynthesis is also included in this exam. Comparison made with prior exam of 03/18/2015, 01/12/2018,. Findings: There was no sign of mass, architectural distortion or suspicious calcification in either breast. The re our scattered areas of fibroglandular density Impression: MM/[place] [id number] BI-RADS: 1-Negative FOLLOW-UP: 1 Year Follow-up This mammogram was also analyzed by the Computer Aided Detection System R2 Imag e Toll Line Repairer.
== END 2023-08-02 11:53 | disposition home or self-care (01) ==
LOC: RAD 11:52
PROVIDERS: PCP Family Medicine; Visit Provider Family Medicine
DX: Z12.31 Encounter for screening mammogram for malignant neoplasm of breast (principal); Z12.2 Encounter for screening for malignant neoplasm of respiratory organs; R92.323 Mammographic fibroglandular density, bilateral breasts; R91.1 Solitary pulmonary nodule
CPT/HCPCS: 71271; 77063; 77067

== ENCOUNTER → 2023-09-26 13:28 | Outpatient (BNVA) | payer MEDICAID, SELFPAY | PROVIDERS: PCP Family Medicine; Visit Provider Nurse Practitioner | DX: R09.81 Nasal congestion (principal) | CPT/HCPCS: 87400 ==

== ENCOUNTER 2023-11-02 07:41 | Outpatient (CLI) | payer MEDICAID, SELFPAY ==
--- NOTE | 2023-11-02 07:49 | CT_ITS ---
WS: [id number] CT chest wo con [id number] HISTORY: LUNG NODULE TECHNIQUE: Axial imaging performed through the thorax. Coronal and sagittal reformats are submitted. All CT scans at [facility] use at least one of these dose optimization techniques: automated exposure control; mA and/or kV adjustment per patient size (includes targeted exams where dose is mat ched to clinical indication); or iterative reconstruction. CONTRAST: None DLP: 203.66 mGy.cm COMPARISON: 08/02/2023, 11/13/2019 Lungs and central airway: Pulmonary hyperexpansion with mild emphysema. Cavitary lesion in a subpleur al location in the RIGHT upper lobe is reidentified and has not increased in size and may have slight ly decreased in size. Maximal diameter 7 mm. There are additional scattered reticular nodular opacifi cations in the RIGHT upper lobe and RIGHT middle lobe which are not significantly improved but also h ave not increased. Pleura: Normal. No pleural effusion. Heart and pericardium: Normal size heart with no pericardial effusion. Mediastinum and joanna: Calcified LEFT hilar lymph nodes. There are a few additional small lymph nodes which do not appear pathologic. RIGHT hilum is difficult to evaluate without IV contrast. Vessels: Normal size aortic and pulmonary artery. No coronary artery calcifications. Chest wall and lower neck: No soft tissue masses. Upper abdomen: Cholelithiasis. Dense calcifications in the gallbladder. Granulomata. LEFT renal calci fications. There is a hyperdense cyst measuring 9 mm. This cyst complex cyst is incompletely visualiz ed. No adrenal mass. Osseous structures: Mild increase in thoracic kyphosis. Mild spondylosis. Hemangioma in one of the up per thoracic vertebral bodies. CT/CT chest wo con [id number] IMPRESSION: 1. No significant change in the RIGHT upper lobe and RIGHT middle lobe nodules and opacifications. RIGHT upper lobe subpleural cavitary lesion has not increa sed in size and may have slightly decreased in size. Recommend chest CT follow- up in 6 months with IV contrast. 2. Centrilobular emphysema. 3. Cholelithiasis.
== END 2023-11-02 07:42 | disposition home or self-care (01) ==
LOC: RAD 07:41
PROVIDERS: PCP Family Medicine; Visit Provider Family Medicine
DX: R91.1 Solitary pulmonary nodule (principal); J43.9 Emphysema, unspecified; K80.20 Calculus of gallbladder without cholecystitis without obstruction; R91.8 Other nonspecific abnormal finding of lung field; I89.8 Other specified noninfective disorders of lymphatic vessels and lymph nodes; K82.8 Other specified diseases of gallbladder; N28.89 Other specified disorders of kidney and ureter; M40.204 Unspecified kyphosis, thoracic region; M47.9 Spondylosis, unspecified; D18.09 Hemangioma of other sites; R93.5 Abnormal findings on diagnostic imaging of other abdominal regions, including retroperitoneum
CPT/HCPCS: 71250

== ENCOUNTER 2023-12-09 20:10 | Emergency (ER) | payer MEDICAID, SELFPAY ==
[2023-12-09 20:13] VITALS: BP 130/82; PULSE 74; RESP 16; TEMP 36.8; O2SAT 99
--- NOTE | 2023-12-09 20:32 | XRR_ITS ---
PROCEDURE INFORMATION: Exam: XR Chest Exam date and time: 12/09/2023 8:35 PM Age: 53 years old Clinical indication: Chest wall pain; Additional info: Cp, feels like something is stuck in throat/chest TECHNIQUE: Imaging protocol: Radiologic exam of the chest. Views: 1 view. COMPARISON: CT chest con [id number] 11/02/2023 8:06 AM FINDINGS: Lungs: The lungs are clear except for a few micronodular opacities in the periphery of the right mid lung which are unchanged since prior CT. This is likely chronic inflammatory in nature. Pleural spaces: Unremarkable. No pleural effusion. No pneumothorax. Heart/Mediastinum: No evidence of esophageal dilatation. No evidence of aspirated foreign body or atelectasis. Bones/joints: Unremarkable. XR/XR chest 1V portable [id number] IMPRESSION: No acute findings
--- NOTE | 2023-12-09 20:34 | W.ED.GENADLT ---
HPI - General Adult General: Chief complaint: General Medical Stated complaint: Throat and chest pain Time Seen by Provider: 12/09/23 20:21 History of Present Illness: Patient comes in with pain with swallowing and burning in her throat. States that for the past couple of days it is felt like she has had something stuck in the back of her throat and down at the end of her esophagus in her stomach. States that tonight while eating a hot dog she had remove the bone because it hurt too much to swallow it. States that she can swallow food and liquid. Denies chest pain, but states it feels full right at the end of her esophagus. Denies any cardiac history. The patient does smoke. Review of Systems General: Reports: 10 or more systems reviewed and unremarkable except in HPI and below PFSH ED PFSH: Medical History Acute bronchiolitis Angular cheilitis from MTX, improved Seropositive rheumatoid arthritis of multiple sites Pulmonary nodules Hypertension does not have ! Joint pain Abnormal laboratory test Seropositive rheumatoid arthritis High risk medication use Immunization counseling Encounter for screening for other viral diseases Surgical History History of hysterectomy History of section x3 History of ear surgery eustachian dilation Family History Other Cancer Diabetes Hypertension Rheumatoid arthritis Denies family history of Chronic kidney disease (CKD) Systemic lupus erythematosus (SLE) in adult Family history of premature coronary artery disease Stroke Social History Smoking and tobacco/nicotine status: current every day tobacco/nicotine user cigarettes Packs smoked per day: 0.75 Alcohol intake: never Substance/Drug Use: never Physical Exam Const: COMMON NORMALS: no acute distress, patient oriented x3, healthy appearing and alert HENMT: COMMON NORMALS: normocephalic and atraumatic HEAD & SCALP: normocephalic and atraumatic Eye: COMMON NORMALS: Equal, round and reactive pupils present and EOMs intact bilaterally PUPIL: Yes Equal, round and reactive pupils present Resp: COMMON NORMALS: normal respiratory effort, No retractions and No use of accessory muscles Cardio: COMMON NORMALS: regular rate and regular rhythm RATE: regular rate RHYTHM: regular rhythm GI: COMMON NORMALS: Normal to inspection, nondistended, normoactive bowel sounds present, Soft to palpation and non-tender PALPATION: Yes Soft to palpation Extremity: COMMON NORMALS: normal to inspection and full ROM Neuro: COMMON NORMALS: patient oriented x3 SENSORIUM/ORIENTATION: Yes alert Psych: COMMON NORMALS: mental status grossly normal and cooperative Skin: COMMON NORMALS: no rashes or lesions noted and no wounds GENERAL SKIN EXAM: no rashes or lesions noted Course Vital Signs: Vital signs: Vital Signs Temperature 98.2 F 12/09/23 20:13 Pulse Rate 81 12/09/23 21:44 Respiratory Rate 16 12/09/23 21:44 Blood Pressure 121/78 12/09/23 21:44 Pulse Oximetry 98 12/09/23 21:44 Oxygen Delivery Me thod Room Air 12/09/23 21:44 [facility] - General Adult Medical Decision Making Patient comes in with pain with swallowing and burning in her throat. States that for the past couple of days it is felt like she has had something stuck in the back of her throat and down at the end of her esophagus in her stomach. States that tonight while eating a hot dog she had remove the bone because it hurt too much to swallow it. States that she can swallow food and liquid. Denies chest pain, but states it feels full right at the end of her esophagus. Denies any cardiac history. The patient does smoke. Physical exam is unremarkable. Will check EKG, labs, give a p.o. dose of Decadron 10 mg, and reassess. On reassessment I talked to the patient about the test results. Her white blood cell count was normal at 10.4. Her sodium, potassium, and creatinine are within normal limits. Her troponin was normal. Will refer her to general surgery for evaluation for upper endoscopy. Will discharge home at this time with precautions to return for worsening or changing symptoms. Lab Data 12/09/23 20:58 12/09/23 20:58 Radiology Impressions Chest X-Ray 12/09/23 20:32 IMPRESSION: No acute findings Laboratory Results WBC 10.40 10^3/uL (3.29-11.43) 12/09/23 20:58 RBC 4.69 10^6/uL (3.85-5.65) 12/09/23 20:58 Hgb 15.20 g/dL (11.27-16.99) 12/09/23 20:58 Hct 43.2 % (36-47) 12/09/23 20:58 MCV 92.1 fl (85-98) 12/09/23 20:58 MCH 32.4 pg (27-33) 12/09/23 20:58 MCHC 35.2 g/dL (30-55) 12/09/23 20:58 RDW 12.4 % (12.1-15.1) 12/09/23 20:58 Plt Count 224 10^3/cmm (157-399) 12/09/23 20:58 MPV 8.8 fL (7.4-10.4) 12/09/23 20:58 Neut % (Auto) 59.7 % 12/09/23 20:58 Lymph % (Auto) 31.6 % 12/09/23 20:58 [place] % (Auto) 5.3 % 12/09/23 20:58 Eos % (Auto) 2.8 % 12/09/23 20:58 Baso % (Auto) 0.4 % 12/09/23 20:58 Neut # (Auto) 6.21 10^3/uL (1.8-7.7) 12/09/23 20:58 Lymph # (Auto) 3.3 10^3/uL (0.8-4.8) 12/09/23 20:58 [place] # (Auto) 0.6 10^3/uL (0.2-0.9) 12/09/23 20:58 Eos # (Auto) 0.3 10^3/uL (0.0-0.8) 12/09/23 20:58 Baso # (Auto) 0.0 10^3/uL (0.0-0.1) 12/09/23 20:58 Nucleated RBC % (auto) 0 % 12/09/23 20:58 Nucleated RBCs # 0.0 /100WBC 12/09/23 20:58 Sodium 140 mmol/L (136-145) 12/09/23 20:58 Potassium 3.7 mmol/L (3.5-5.1) 12/09/23 20:58 Chloride 106 mmol/L (98-107) 12/09/23 20:58 Carbon Dioxide 22 mmol/L (22-29) 12/09/23 20:58 Anion Gap 15.7 (5-19) 12/09/23 20:58 BUN 15 mg/dL (6-20) 12/09/23 20:58 Creatinine 0.8 mg/dL (0.5-0.9) 12/09/23 20:58 GFR Calculation 75.3 mL/min (90-130) L 12/09/23 20:58 Glucose 118 mg/dL (65-115) H 12/09/23 20:58 Calculated Osmolality 292 mOsm/kg (285-295) 12/09/23 20:58 Calcium 9.0 mg/dL (8.5-10.5) 12/09/23 20:58 Total Bilirubin 0.2 mg/dL (0.15-1.2) 12/09/23 20:58 AST 14 U/L (0-32) 12/09/23 20:58 ALT 11 U/L (0-33) 12/09/23 20:58 Alkaline Phosphatase 145 U/L (35-105) H 12/09/23 20:58 Troponin T Baseline < 6 ng/L (0-10) 12/09/23 20:58 Total Protein 5.9 g/dL (6.6-8.7) L 12/09/23 20:58 Albumin 4.0 g/dL (3.5-5.2) 12/09/23 20:58 Globulin 1.9 g/dL (1.3-4.6) 12/09/23 20:58 XR interpretation done by ED provider, pending radiology final review EKG Data EKG 1: Computer generated interpretation: Chest X-Ray 12/09/23 20:32 IMPRESSION: No acute findings Discharge Plan Discharge Patient Disposition: Home Clinical Impression: Odynophagia Condition: Stable Prescriptions: No Action tizanidine [Zanaflex] 6 mg capsule 6 mg PO ONCE meloxicam 7.5 mg tablet 7.5 mg PO DAILY amoxicillin 500 mg capsule 500 mg PO BID Qty: 14 0RF prednisone 20 mg tablet 20 mg PO DAILY Qty: 5 0RF Discharge Orders: Discharge ED (Routine); Ordered 12/09/23 Ordered By: Goyo Dos Santos Referrals: Jeb Harrison DO [Physician] - David,Silvia Desi, DO [Primary Care Provider] - Patient Instructions: Upper Endoscopy (DC) Coding Level of Care Code ED 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
--- NOTE | 2023-12-09 20:50 | ECG_ITS ---
[facility] Test Date: 2023-12-09 Pat Name: Lucy Fu Department: Room: Gender: Female Regional Branch Manager: : 1970 Requested By: Goyo Dos Santos Order Number: [id number] A Jurado MD: Dayton Amado M.D. Measurements Intervals [place] Rate: 71 P: 41 NE: 138 QRS: -7 QRSD: 77 T: 52 QT: 372 QTc: 407 Interpretive Statements SINUS RHYTHM LOW QRS VOLTAGE IN PRECORDIAL LEADS [QRS DEFLECTION < 1.0 mV IN CHEST LEADS] POSSIBLE RIGHT VENTRICULAR CONDUCTION DELAY [RSR (QR) IN V1/V2] Compared to ECG 07/03/2017 22:46:04 Low QRS voltage now present Electronically Signed On 12-10-2023 18:45:59 CDT by Dayton Amado M.D. [id number]
[2023-12-09 21:04] LABS: Basophils % 0.4 %; Eosinophils # 0.3 10^3/uL (0.0-0.8); Eosinophils % 2.8 %; Hematocrit 43.2 % (36-47); Lymphocytes # 3.3 10^3/uL (0.8-4.8); Lymphocytes % 31.6 %; Mean Corpuscular HGB Conc 35.2 g/dL (30-55); Mean Corpuscular Hemoglobin 32.4 pg (27-33); Mean Corpuscular Volume 92.1 fl (85-98); Mean Platelet Volume 8.8 fL (7.4-10.4); Monocytes # 0.6 10^3/uL (0.2-0.9); Monocytes % 5.3 %; Neutrophils # 6.21 10^3/uL (1.8-7.7); Neutrophils % 59.7 %; Nucleated Red Blood Cells % 0 %; Platelet Count 224 10^3/cmm (157-399); Red Blood Count 4.69 10^6/uL (3.85-5.65); Red Cell Distribution Width 12.4 % (12.1-15.1)
[2023-12-09 21:24] LABS: Troponin(5th) Baseline < 6 ng/L (0-10)
[2023-12-09 21:26] LABS: Alanine Aminotransferase 11 U/L (0-33); Alkaline Phosphatase 145 U/L (35-105); Aspartate Amino Transferase 14 U/L (0-32); Blood Urea Nitrogen 15 mg/dL (6-20); Carbon Dioxide 22 mmol/L (22-29); Chloride 106 mmol/L (98-107); Globulin 1.9 g/dL (1.3-4.6); Glomerular Filtration Rate 75.3 mL/min (90-130); Glucose 118 mg/dL (65-115); Osmolality Calculated 292 mOsm/kg (285-295); Sodium 140 mmol/L (136-145); Total Bilirubin 0.2 mg/dL (0.15-1.2); Total Protein 5.9 g/dL (6.6-8.7)
[2023-12-09 21:30] LABS: Anion Gap 15.7 (5-19); Potassium 3.7 mmol/L (3.5-5.1)
[2023-12-09] MEDS: dexamethasone 4 mg Tablet 10 MG PO (21:30)
[2023-12-09 21:44] VITALS: BP 121/78; PULSE 81; RESP 16; O2SAT 98
[2023-12-09 22:24] VITALS: BP 114/78; PULSE 75; RESP 16; TEMP 36.8; O2SAT 97
== END 2023-12-09 22:20 | disposition home or self-care (01) ==
PROVIDERS: Emergency Provider Emergency Medicine; PCP Family Medicine
DX: R13.10 Dysphagia, unspecified (principal); I10 Essential (primary) hypertension; F17.210 Nicotine dependence, cigarettes, uncomplicated
CPT/HCPCS: 36415; 71045; 80053; 84484; 85025; 93005; 99285; J8540

== ENCOUNTER 2024-01-11 10:33 | Outpatient (CLI) | payer MEDICAID, SELFPAY ==
--- NOTE | 2024-01-11 10:39 | XR_ITS ---
WS: [id number] XR hip RT 2-3V wo/w pel* [id number] REASON FOR EXAM: R GROIN PAIN FINDINGS: The joint space of the right hip is intact and relatively well maintained. Minimal subchondral sclerosis of the acetabulum. Short femoral neck with coxa valgus, non-standing image. No soft tissue abnormality. XR/XR hip RT 2-3V wo/w pel* [id number] IMPRESSION: Minimal osteoarthritis of the right hip joint. Potential coxa valgus deformity. Recommend standing upright view of the pelvis/ hips as clinically warranted.
== END 2024-01-11 10:34 | disposition home or self-care (01) ==
LOC: RAD 10:34
PROVIDERS: PCP Family Medicine; Visit Provider Family Medicine
DX: M21.051 Valgus deformity, not elsewhere classified, right hip (principal); R10.31 Right lower quadrant pain
CPT/HCPCS: 73502

== ENCOUNTER 2024-01-17 13:10 | Outpatient (CLI) | payer MEDICAID, SELFPAY ==
--- NOTE | 2024-01-17 13:27 | XR_ITS ---
WS: [id number] Examination: XR hip BI 3-4V wo/w pel [id number] Reason for Exam: R GROIN PAIN Date: January 17, 2024 Comparison: None. Findings: The bone density is maintained. There is no destruction There is no fracture or dislocation. Mild asymmetric acetabular sclerosis is again noted XR/XR hip BI 3-4V wo/w pel [id number] Impression: No acute bony abnormality is identified Mild degenerative changes are noted on the right..
== END 2024-01-17 13:11 | disposition home or self-care (01) ==
PROVIDERS: PCP Family Medicine; Visit Provider Family Medicine
DX: R10.31 Right lower quadrant pain (principal)
CPT/HCPCS: 73522

== ENCOUNTER 2024-03-01 07:45 | Outpatient (CLI) | payer MEDICAID, SELFPAY ==
--- NOTE | 2024-03-01 07:47 | US_ITS ---
WS: [id number] RIGHT UPPER QUADRANT ULTRASOUND HISTORY: RUQ ABDOMINAL PAIN COMPARISON: None available. Liver: 14.4 cm in length. Normal size liver and echogenicity. No bile duct dilatation or mass. Portal Vein: Normal hepatopetal flow with monophasic waveform. Gallbladder: Well-distended gallbladder with numerous small stones. No pericholecystic fluid. CBD: 0.4 cm Pancreas: Normal size and echogenicity. Right kidney: 8.9 cm in length. Normal size and echogenicity. No hydronephrosis or mass. Aorta and IVC: Unremarkable abdominal aorta and IVC. No ascites. US/US abdomen limited [id number] IMPRESSION: 1. Cholelithiasis without evidence for acute cholecystitis. 2. No hepatobiliary dilatation.
== END 2024-03-01 07:46 | disposition home or self-care (01) ==
PROVIDERS: PCP Family Medicine; Visit Provider Nurse Practitioner Family
DX: K80.20 Calculus of gallbladder without cholecystitis without obstruction (principal)
CPT/HCPCS: 76705

== ENCOUNTER → 2024-03-03 08:50 | Outpatient (BNVA) | payer MEDICAID, SELFPAY | PROVIDERS: PCP Family Medicine | DX: M25.832 Other specified joint disorders, left wrist (principal); M25.532 Pain in left wrist | CPT/HCPCS: 73110 ==

== ENCOUNTER → 2024-04-07 17:46 | Outpatient (BNVA) | payer MEDICAID, SELFPAY | PROVIDERS: PCP Family Medicine; Visit Provider Nurse Practitioner | DX: R05.9 Cough, unspecified (principal) | CPT/HCPCS: 87400; 87426 ==

== ENCOUNTER 2024-09-13 08:45 | Emergency (ER) | payer MEDICAID, SELFPAY ==
--- NOTE | 2024-09-13 08:50 | XR_ITS ---
WS: [id number] Exam: XR hip RT 2-3V wo/w pel* [id number] Date/Time of Exam: 09/13/2024 9:21 AM Reason For Exam: pain Comparison 01/17/2024. Total RIGHT hip arthroplasty is in satisfactory position. No sign of loosening. Normal soft tissues. XR/XR hip RT 2-3V wo/w pel* [id number] IMPRESSION: 1. Stable appearing RIGHT total knee arthroplasty.
[2024-09-13 08:51] VITALS: BP 149/88; PULSE 64; RESP 16; TEMP 36.7; O2SAT 99; BMI 22.3
--- NOTE | 2024-09-13 09:15 | PC.PHAR ---
patient just finished up cephalexin 500mg yesterday, per patient. was filled 09/04/24 7 days
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
[2024-09-13 10:17] LABS: Basophils # 0.1 10^3/uL (0.0-0.1); Basophils % 0.7 %; Eosinophils # 0.2 10^3/uL (0.0-0.8); Eosinophils % 3.3 %; Hematocrit 40.9 % (36-47); Lymphocytes # 1.7 10^3/uL (0.8-4.8); Lymphocytes % 25.4 %; Mean Corpuscular HGB Conc 32.8 g/dL (30-55); Mean Corpuscular Hemoglobin 30.6 pg (27-33); Mean Corpuscular Volume 93.4 fl (85-98); Mean Platelet Volume 8.3 fL (7.4-10.4); Monocytes # 0.3 10^3/uL (0.2-0.9); Neutrophils # 4.41 10^3/uL (1.8-7.7); Neutrophils % 65.5 %; Nucleated Red Blood Cells % 0 %; Platelet Count 295 10^3/cmm (157-399); Red Blood Count 4.38 10^6/uL (3.85-5.65); Red Cell Distribution Width 12.1 % (12.1-15.1); White Blood Count 6.74 10^3/uL (3.29-11.43)
[2024-09-13 10:28] VITALS: RESP 17; O2SAT 98
[2024-09-13] MEDS: morphine 4 mg/mL SDV 1 mL IM (10:28)
[2024-09-13] MEDS: ondansetron 2 mg/ML SDV 2 mL 4 MG IM (10:29)
[2024-09-13] MEDS: dexamethasone 10 mg/mL INJ IM (10:33)
== END 2024-09-13 11:08 | disposition home or self-care (01) ==
PROVIDERS: Emergency Provider Emergency Medicine; PCP Family Medicine
DX: M25.551 Pain in right hip (principal); F17.210 Nicotine dependence, cigarettes, uncomplicated
CPT/HCPCS: 36415; 73502; 85025; 96372; 99284; J1100; J2270; J2405

== ENCOUNTER 2024-10-09 16:24 | Outpatient (CLI) | payer MEDICAID, SELFPAY ==
[2024-10-09 16:56] LABS: Basophils # 0.1 10^3/uL (0.0-0.1); Basophils % 0.7 %; Eosinophils # 0.2 10^3/uL (0.0-0.8); Eosinophils % 3.2 %; Hematocrit 43.2 % (36-47); Lymphocytes # 2.4 10^3/uL (0.8-4.8); Lymphocytes % 33.7 %; Mean Corpuscular HGB Conc 33.3 g/dL (30-55); Mean Corpuscular Hemoglobin 30.2 pg (27-33); Mean Corpuscular Volume 90.6 fl (85-98); Mean Platelet Volume 8.5 fL (7.4-10.4); Monocytes # 0.3 10^3/uL (0.2-0.9); Monocytes % 4.7 %; Neutrophils # 4.08 10^3/uL (1.8-7.7); Neutrophils % 57.6 %; Nucleated Red Blood Cells % 0 %; Platelet Count 327 10^3/cmm (157-399); Red Blood Count 4.77 10^6/uL (3.85-5.65); Red Cell Distribution Width 11.8 % (12.1-15.1); White Blood Count 7.09 10^3/uL (3.29-11.43)
[2024-10-09 17:26] LABS: Alanine Aminotransferase 8 U/L (0-33); Albumin Level 4.4 g/dL (3.5-5.2); Alkaline Phosphatase 163 U/L (35-105); Blood Urea Nitrogen 14 mg/dL (6-20); Calcium 9.5 mg/dL (8.5-10.5); Carbon Dioxide 23 mmol/L (22-29); Chloride 103 mmol/L (98-107); Globulin 2.9 g/dL (1.3-4.6); Glomerular Filtration Rate 87.5 mL/min (90-130); Glucose 78 mg/dL (65-115); Osmolality Calculated 289 mOsm/kg (285-295); Sodium 140 mmol/L (136-145); Total Bilirubin 0.2 mg/dL (0.15-1.2); Total Protein 7.3 g/dL (6.6-8.7)
[2024-10-09 18:20] LABS: Anion Gap 17.6 (5-19); Aspartate Amino Transferase 14 U/L (0-32); Potassium 3.6 mmol/L (3.5-5.1)
== END 2024-10-09 16:25 | disposition home or self-care (01) ==
PROVIDERS: PCP Family Medicine; Visit Provider Physician Assistant
DX: Z51.81 Encounter for therapeutic drug level monitoring (principal); Z79.620 Long term (current) use of immunosuppressive biologic
CPT/HCPCS: 80053; 85025

== ENCOUNTER 2024-10-30 18:46 | Emergency (ER) | payer MEDICAID, SELFPAY ==
[2024-10-30 19:08] VITALS: BP 137/90; PULSE 89; TEMP 37; O2SAT 96; BMI 21.9
[2024-10-30 19:18] VITALS: BP 134/81; PULSE 81; RESP 18; O2SAT 98
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
[2024-10-30 20:07] VITALS: BP 121/82; PULSE 82; RESP 17; O2SAT 94
== END 2024-10-30 20:14 | disposition home or self-care (01) ==
PROVIDERS: Emergency Provider Emergency Medicine; PCP Family Medicine
DX: S90.31XA Contusion of right foot, initial encounter (principal); M25.522 Pain in left elbow; M25.521 Pain in right elbow; M25.512 Pain in left shoulder; M25.511 Pain in right shoulder; M25.551 Pain in right hip; M05.79 Rheumatoid arthritis with rheumatoid factor of multiple sites without organ or systems involvement; V89.2XXA Person injured in unspecified motor-vehicle accident, traffic, initial encounter; Z96.641 Presence of right artificial hip joint
CPT/HCPCS: 73630; 99283

== ENCOUNTER → 2025-04-04 16:16 | Outpatient (BNVA) | payer MEDICAID, SELFPAY | PROVIDERS: PCP Family Medicine; Visit Provider Clinical Nurse Specialist Adult Health | DX: M05.9 Rheumatoid arthritis with rheumatoid factor, unspecified (principal) | CPT/HCPCS: 80053; 85007; 85027 ==

== ENCOUNTER 2025-04-17 10:49 | Outpatient (CLI) | payer MEDICAID, SELFPAY ==
--- NOTE | 2025-04-17 11:00 | FL_ITS ---
WS: [id number] Exam: FL barium swallow modifd [id number] Date/Time of Exam: 04/17/2025 11:00 AM Reason For Exam: R13.19 - Other dysphagia Fluoroscopy time: 2min [id number] minutes # of spot films: Oropharyngeal phase of swallowing was normal. The patient tolerated all consistencies of barium mixture foodstuffs without aspiration or penetration. The patient swallowed a barium tablet without difficulty or complication. FL/FL barium swallow modifd [id number] IMPRESSION: 1. Unremarkable modified barium swallow test. A separate report with detailed recommendations will follow from the speech the rapy service.
== END 2025-04-17 10:50 | disposition home or self-care (01) ==
LOC: RAD 10:52
PROVIDERS: PCP Clinical Nurse Specialist Adult Health; Visit Provider Clinical Nurse Specialist Adult Health
DX: R13.19 Other dysphagia (principal); Z91.014 Allergy to mammalian meats
CPT/HCPCS: 74230; 92611

== ENCOUNTER 2025-04-24 08:18 | Outpatient (CLI) | payer MEDICAID, SELFPAY ==
--- NOTE | 2025-04-24 16:44 | FL_ITS ---
FL barium swallow 62693 REASON FOR EXAM: R13.19 - Other dysphagia FLUOROSCOPY TIME: 2min 5.774802gsw # OF SPOT FILMS: Multiple TECHNIQUE: Patient was examined in the standing upright AP and lateral projections, the prone MURILLO projection, and the supine LPO position. The swallowing of barium was monitored fluoroscopically and multiple rapid sequence spot films were obtained FINDINGS: No abnormality of the cervical esophagus was identified. There was no laryngeal vestibule penetration by contrast and no aspiration or significant cricopharyngeus impingement. In the thoracic esophagus there is intermittent lower esophageal spasm with retention of contrast in the esophagus. There were intermittent episodes of esophageal esophageal reflux to the level of the sternal notch. There were infrequent episodes of tertiary contractions. No significant hiatal hernia was demonstrated. No significant gastroesophageal reflux was noted. IMPRESSION: Mild esophageal dysmotility as above. MTDD
== END 2025-04-24 08:19 | disposition home or self-care (01) ==
LOC: RAD 08:19
PROVIDERS: PCP Clinical Nurse Specialist Adult Health; Visit Provider Clinical Nurse Specialist Adult Health
DX: R13.19 Other dysphagia (principal); K22.4 Dyskinesia of esophagus
CPT/HCPCS: 74220

== ENCOUNTER 2025-04-25 14:01 | Outpatient (CLI) | payer MEDICAID, SELFPAY ==
--- NOTE | 2025-04-25 14:15 | CT_ITS ---
WS: [id number] LDCT LUNG CANCER SCREENING TECHNIQUE: Noncontrast CT of the chest with coronal and sagittal reformatted images. CLINICAL INFORMATION: Z87.891 - Personal history of nicotine dependence COMPARISON: CT lung screening 08/02/2023 DLP: 43.11 mGy.cm DIvol: Mean CTDIvol: 0.80 (mGy) All CT scans at use at least one of these dose optimization techniques: automated exposure control; mA and/or kV adjustment per patient size (includes targeted exams where dose is matched to clinical indication); or iterative reconstruction. FINDINGS: Previously described subpleural cavitary nodule in the RIGHT upper lobe posteriorly abutting the pleura has nearly resolved with only small amount of residual scarring in this area. A few tree-in-bud opacities in the RIGHT upper lobe and RIGHT middle lobe soup similar to previous. Fibrosis in the lung apices. A few scattered subcentimeter nodules in the RIGHT upper lobe. Tiny nodule in the lingula. Coronary calcification. No mediastinal or hilar lymphadenopathy. Calcified LEFT hilar lymph nodes. Spinal granulomas. Cholelithiasis. Small esophageal hiatal hernia. Adrenal glands are normal. Partially visualized cortical parenchymal scarring LEFT kidney with small hyperdense or calcified cortical lesion measuring 7 mm. Moderate thoracic kyphosis. Biconcave compression fracture with anterior wedging at T8 is new compared to 11/02/2023. Loss of approximately 30% vertebral body height anteriorly. No retropulsion. Pedicles appear intact. Recommend correlation for mid back pain. Hemangioma T5 vertebral body. CT/CT lung screening [id number] IMPRESSION: Biconcave compression fracture with anterior wedging at T8 is new compared to . LUNG-RADS: 2S-Benign Appearance or Behavior with Significant Findings FOLLOW UP: 12 Month: Continue annual screening with LDCT
== END 2025-04-25 14:02 | disposition home or self-care (01) ==
LOC: RAD 14:02
PROVIDERS: PCP Clinical Nurse Specialist Adult Health; Visit Provider Clinical Nurse Specialist Adult Health
DX: Z12.2 Encounter for screening for malignant neoplasm of respiratory organs (principal); Z87.891 Personal history of nicotine dependence; K44.9 Diaphragmatic hernia without obstruction or gangrene; S22.060A Wedge compression fracture of T7-T8 vertebra, initial encounter for closed fracture; X58.XXXA Exposure to other specified factors, initial encounter; I89.8 Other specified noninfective disorders of lymphatic vessels and lymph nodes; G06.1 Intraspinal abscess and granuloma; R93.422 Abnormal radiologic findings on diagnostic imaging of left kidney; M40.04 Postural kyphosis, thoracic region
CPT/HCPCS: 71271

== ENCOUNTER 2025-05-04 13:14 | Outpatient (CLI) | payer MEDICAID, SELFPAY ==
--- NOTE | 2025-05-04 13:30 | XR_ITS ---
WS: [id number] SCREENING DEXA SCAN [employer] CLINICAL INFORMATION: S22.060A - Wedge compression fracture of T7-T8 vertebra, ... COMPARISON: None. FINDINGS: The L1-L4 bone mineral density measures 0.817 g/cm2. This corresponds to a T score score of -3.0 and Z score of -2.0. Left femoral neck bone mineral density measures 0.836 (g/cm2). This corresponds to a T score of -1.4 (no units) and Z score of -0.5 (no units). XR/XR DEXA axial skeleton* 69305 IMPRESSION: Osteoporosis lumbar spine. Osteopenia LEFT femoral neck. Patient's FRAX calculated 10 year probability for major osteoporotic fracture i s 10.1% and osteoporotic hip fracture is 1.6%.
== END 2025-05-04 13:15 | disposition home or self-care (01) ==
LOC: RAD 13:15
PROVIDERS: PCP Clinical Nurse Specialist Adult Health; Visit Provider Clinical Nurse Specialist Adult Health
DX: Z13.820 Encounter for screening for osteoporosis (principal); M05.79 Rheumatoid arthritis with rheumatoid factor of multiple sites without organ or systems involvement; S22.060A Wedge compression fracture of T7-T8 vertebra, initial encounter for closed fracture; X58.XXXA Exposure to other specified factors, initial encounter; Z78.0 Asymptomatic menopausal state; M85.89 Other specified disorders of bone density and structure, multiple sites; M81.0 Age-related osteoporosis without current pathological fracture
CPT/HCPCS: 77080

== ENCOUNTER → 2025-06-06 09:03 | Outpatient (BNVA) | payer MEDICAID, SELFPAY | PROVIDERS: PCP Clinical Nurse Specialist Adult Health; Visit Provider Clinical Nurse Specialist Adult Health | DX: M81.0 Age-related osteoporosis without current pathological fracture (principal) | CPT/HCPCS: 82306 ==